=== PATIENT | male | born 1955 | race Caucasian/White ===

== ENCOUNTER 2019-07-31 11:06 | Emergency (ER) | payer MEDICAID ==
[~2019-07-31] VITALS: Ht 180.3 cm; Wt 88.5 kg
--- NOTE | 2019-07-31 11:10 | NUR ---
[facility] FOR [facility]LE CELLULITIS. SKIN IS INTACT, WARM TO TOUCH. DENIES SOB, PAIN, DIFFICULTY AMBULATING. NO ACUTE DISTRESS NOTED. MADE COMFORTABLE AND READY FOR EVAL.
--- NOTE | 2019-07-31 11:30 | NUR ---
CALLED DR. GRAFF OFFICE. LEFT NUMBER. WILL CALL BACK.
--- NOTE | 2019-07-31 11:35 | NUR ---
Bertin landon in [facility] - 07/31/19 at 1220 by KURT Patient discharged to home in stable condition. Written and verbal after care instructions given. Patient verbalizes understanding of instruction.
--- NOTE | 2019-07-31 11:42 | NUR ---
CALLED [facility] FOR TRANSPORT TO [facility], ETA 1230.
--- NOTE | 2019-07-31 11:45 | NUR ---
CALLED FACILITY, SPOKE WITH DIOMEDES. SHE IS GOING TO GET AUTHORIZATION FOR PT TO GO BACK TO FACILITY.
--- NOTE | 2019-07-31 12:00 | NUR ---
Patient discharged to home in stable condition. Written and verbal after care instructions given. Patient verbalizes understanding of instruction.
[2019-07-31 12:20] VITALS: BP 138/99
== END 2019-07-31 12:00 ==
LOC: ER 11:11
DX: L03.116 Cellulitis of left lower limb (principal); I10 Essential (primary) hypertension; G62.9 Polyneuropathy, unspecified; G89.29 Other chronic pain

== ENCOUNTER 2024-01-07 23:55 | Inpatient (IN) | payer MEDICARE, OTHER ==
[~2024-01-07] VITALS: Ht 177.8 cm; Wt 77.1 kg
[2024-01-08 00:31] LABS: BASOPHILS % (AUTO) 0.5 % (0.0-2.0); EOSINOPHILS # (AUTO) 0.3 K/uL (0.0-0.7); EOSINOPHILS % (AUTO) 4.8 % (0.0-6.0); HEMATOCRIT 32 % (39-51); HEMOGLOBIN 10.7 g/dL (13.5-17.5); LYMPHOCYTES # (AUTO) 1.9 K/uL (0.8-4.8); MEAN CORPUSCULAR HEMOGLOBIN 32 PG (26.0-33.0); MEAN CORPUSCULAR HGB CONC 34 g/dl (31.0-36.0); MEAN CORPUSCULAR VOLUME 94 fL (80-96); MONOCYTES # (AUTO) 0.7 K/uL (0.1-1.30); MONOCYTES % (AUTO) 10.2 % (2.0-12.0); NEUTROPHILS # (AUTO) 4.2 K/uL (1.8-8.9); NEUTROPHILS % (AUTO) 58.5 % (43.0-81.0); PLATELET COUNT (AUTO) 208 K/uL (150-450); RED BLOOD CELL COUNT(AUTO) 3.39 MIL/uL (4.5-6.0); WHITE BLOOD COUNT (AUTO) 7.2 K/uL (4.3-11.0)
[2024-01-08 00:39] LABS: CALCIUM, SERUM 8.5 mg/dL (8.5-10.1); CARBON DIOXIDE 31 mmol/L (21-32); CHLORIDE 105 mmol/L (98-107); CREATININE 0.8 mg/dL (0.6-1.3); GLUCOSE 94 mg/dL (74-106); POTASSIUM 3.9 mmol/L (3.5-5.1); SODIUM SERUM 141 mmol/L (136-145); UREA NITROGEN, BLOOD 13 mg/dL (7-18)
[2024-01-08 00:44] LABS: ALANINE AMINOTRANSFERASE 23 U/L (12-78); ALBUMIN 2.7 g/dL (3.4-5.0); ALCOHOL, BLOOD < 3 mg/dL (0-10); ALKALINE PHOSPHATASE 138 U/L (46-116); ASPARTATE AMINOTRANSFERASE 15 U/L (15-37); BILIRUBIN,DIRECT 0.1 mg/dL (0.0-0.2); BILIRUBIN,TOTAL 0.4 mg/dL (0.2-1.0); TOTAL PROTEIN, SERUM 8.4 g/dL (6.4-8.2)
[2024-01-08 00:51] LABS: ACETAMINOPHEN <10 ug/ml (10-30); SALICYLATE 2.4 mg/dL (2.8-20.0)
[2024-01-08 00:54] LABS: APPEARANCE,URINE CLEAR (CLEAR); BILIRUBIN,URINE NEGATIVE (NEGATIVE); BLOOD, URINE TRACE-INTA Ery/uL (NEGATIVE); COLOR,URINE YELLOW (YELLOW); KETONES,URINE NEGATIVE (NEGATIVE); LEUKOCYTE ESTERASE ,URINE NEGATIVE (NEGATIVE); NITRITE, URINE NEGATIVE (NEGATIVE); PROTEIN,URINE NEGATIVE (NEGATIVE); UGLUCOSE NEGATIVE (NEGATIVE)
[2024-01-08 00:55] LABS: ADD URINE CULTURE NO; BACTERIA,URINE Rare /HPF (None Seen); SQUAMOUS EPITHELIAL CELL,UR Few /HPF (None Seen); WBC,URINE 0-2 /HPF (0-3)
[2024-01-08 01:06] LABS: AMPHETAMINE, URINE NEGATIVE (NEGATIVE); BARBITURATE, URINE NEGATIVE (NEGATIVE); BENZODIAZEPINE, URINE NEGATIVE (NEGATIVE); CANNABINOID, URINE NEGATIVE (NEGATIVE); COCCAINE, URINE NEGATIVE (NEGATIVE); OPIATE, URINE NEGATIVE (NEGATIVE); PHENCYCLIDINE SCREEN,URINE NEGATIVE (NEGATIVE)
[2024-01-08] MEDS ORDERED: METH10TA2 PO (02:46)
[2024-01-08] MEDS ORDERED: LISI2.5T2 PO (02:46)
[2024-01-08] MEDS ORDERED: FLUO20CA36 PO (02:46)
[2024-01-08] MEDS ORDERED: CLON0.5T4 PO (02:46)
[2024-01-08] MEDS ORDERED: ARIP2TAB3 PO (02:46)
[2024-01-08] MEDS ORDERED: APIX5TAB4 PO (02:46)
[2024-01-08] MEDS ORDERED: TEMAZEPAM 7.5 MG CAPSULE PO PRN (04:30)
[2024-01-08] MEDS ORDERED: ACETAMINOPHEN 325 MG TABLET PO PRN (04:30)
[2024-01-08] MEDS ORDERED: MAG HYDROX/AL HYDROX/SIMETH 30 ML UDC PO PRN (04:30)
[2024-01-08] MEDS: BLOOD SUGAR DIAGNOSTIC 1 EACH STRIP IN ONE (06:37)
[2024-01-08 08:00] VITALS: BP 109/65; TEMP 98; O2SAT 99
[2024-01-08] MEDS ORDERED: FERR325T23 PO (08:00)
[2024-01-08] MEDS ORDERED: FOLI1TAB24 PO (08:00)
[2024-01-08] MEDS ORDERED: APIX5TAB PO (08:00)
[2024-01-08] MEDS ORDERED: LACT10PA3 PO (08:00)
[2024-01-08] MEDS ORDERED: CHOL200026 PO (08:00)
[2024-01-08] MEDS: LORAZEPAM 0.5 MG TABLET PO PRN (13:56)
[2024-01-08] MEDS: DIVALPROEX SODIUM 250 MG TABLET.DR PO SCH (14:00)
[2024-01-08 16:00] VITALS: BP 104/68; TEMP 98.6; O2SAT 94
[2024-01-08] MEDS ORDERED: LACTULOSE 10 G/15 ML UDC (PYXIS) PO PRN (17:30)
[2024-01-08] MEDS: METHADONE HCL 10 MG TABLET PO SCH (17:47)
[2024-01-08] MEDS: APIXABAN 5 MG TABLET PO SCH (17:48)
[2024-01-08 20:41] VITALS: BP 148/47; TEMP 98.3; O2SAT 97
[2024-01-08] MEDS: ARIPIPRAZOLE 2 MG TABLET PO SCH (21:31)
[2024-01-09 08:00] VITALS: BP 114/65; TEMP 98; O2SAT 98
[2024-01-09] MEDS: FERROUS SULFATE (325 MG) 325 MG/TAB TABLET PO SCH (08:33)
[2024-01-09] MEDS: FOLIC ACID 1 MG TABLET PO SCH (08:35)
[2024-01-09] MEDS: LISINOPRIL (5MG) 5 MG TABLET PO SCH (08:38)
[2024-01-09] MEDS: CHOLECALCIFEROL 1,000 UNIT TABLET (VIT D3) PO SCH (08:43)
[2024-01-09] MEDS: MULTIPLE VIT (LYCOPENE/FA/MV,CA,IRON,MIN/LUT)1 TAB PO SCH (08:45)
[2024-01-09 16:00] VITALS: BP 124/85; TEMP 97.9; O2SAT 97
[2024-01-09] MEDS ORDERED: risperiDONE 1 MG TABLET PO SCH (20:00)
[2024-01-09 20:32] VITALS: BP 108/61; TEMP 97.9; O2SAT 100
[2024-01-09] MEDS: risperiDONE 1 MG TABLET PO SCH (22:00)
[2024-01-10 07:40] LABS: CREATININE 0.7 mg/dL (0.6-1.3)
[2024-01-10 07:44] LABS: BASOPHILS % (AUTO) 0.2 % (0.0-2.0); EOSINOPHILS # (AUTO) 0.4 K/uL (0.0-0.7); EOSINOPHILS % (AUTO) 5.5 % (0.0-6.0); HEMATOCRIT 29 % (39-51); HEMOGLOBIN 9.7 g/dL (13.5-17.5); LYMPHOCYTES # (AUTO) 2.1 K/uL (0.8-4.8); LYMPHOCYTES % (AUTO) 30.8 % (20.0-44.0); MEAN CORPUSCULAR HEMOGLOBIN 31 PG (26.0-33.0); MEAN CORPUSCULAR HGB CONC 34 g/dl (31.0-36.0); MEAN CORPUSCULAR VOLUME 92 fL (80-96); MONOCYTES # (AUTO) 0.7 K/uL (0.1-1.30); NEUTROPHILS # (AUTO) 3.6 K/uL (1.8-8.9); NEUTROPHILS % (AUTO) 52.5 % (43.0-81.0); PLATELET COUNT (AUTO) 194 K/uL (150-450); RED CELL DISTRIBUTION WIDTH 14.8 % (11.5-15.0); WHITE BLOOD COUNT (AUTO) 6.8 K/uL (4.3-11.0)
[2024-01-10 07:55] LABS: ALBUMIN 2.1 g/dL (3.4-5.0); BILIRUBIN,TOTAL 0.2 mg/dL (0.2-1.0); CALCIUM, SERUM 8.2 mg/dL (8.5-10.1); CREATININE 0.7 mg/dL (0.6-1.3); POTASSIUM 3.9 mmol/L (3.5-5.1)
[2024-01-10 08:00] VITALS: BP 127/75; TEMP 97.7; O2SAT 98
[2024-01-10 08:04] LABS: CHOLESTEROL 130 mg/dL (<200); HDL CHOLESTEROL 50 mg/dL (40-60); LDL 65 mg/dL (0-99); TRIGLYCERIDES 42 mg/dL (30-150)
[2024-01-10 16:00] VITALS: BP 116/73; TEMP 97.9; O2SAT 100
[2024-01-10 21:32] VITALS: BP 117/67; TEMP 98.4; O2SAT 96
[2024-01-10] MEDS: CEPHALEXIN MONOHYDRATE 500 MG CAPSULE PO SCH (21:33)
[2024-01-11 08:00] VITALS: BP 130/82; TEMP 98.1; O2SAT 99
[2024-01-11] MEDS: THERAHONEY GEL 1.5 OZ TUBE TP SCH (09:00)
[2024-01-11] MEDS: risperiDONE 1 MG TABLET PO SCH (12:17)
[2024-01-11 16:00] VITALS: BP 118/80; TEMP 98.6; O2SAT 98
[2024-01-11 20:50] VITALS: BP 138/85; TEMP 97.9; O2SAT 99
[2024-01-12 08:00] VITALS: BP 137/87; TEMP 98.6; O2SAT 97
[2024-01-12 16:00] VITALS: BP 126/82; TEMP 98.1; O2SAT 98
[2024-01-12 20:00] VITALS: BP 143/85; TEMP 98.3; O2SAT 99
[2024-01-13 08:00] VITALS: BP 133/84; TEMP 98; O2SAT 98
[2024-01-13 16:00] VITALS: BP 133/81; TEMP 97.6; O2SAT 98
[2024-01-13 20:00] VITALS: BP 133/85; TEMP 97.9; O2SAT 97
[2024-01-14 08:00] VITALS: BP 130/95; TEMP 98; O2SAT 95
[2024-01-14] MEDS: risperiDONE 1 MG TABLET PO SCH ×2 (09:54→21:47)
[2024-01-14 16:00] VITALS: BP 138/83; TEMP 97.7; O2SAT 98
[2024-01-14 20:00] VITALS: BP 113/73; TEMP 97.6; O2SAT 96
[2024-01-14] MEDS: DIVALPROEX SODIUM 500 MG TABLET.DR PO SCH (21:47)
[2024-01-15 07:57] LABS: BASOPHILS % (AUTO) 0.2 % (0.0-2.0); EOSINOPHILS # (AUTO) 0.3 K/uL (0.0-0.7); EOSINOPHILS % (AUTO) 3.3 % (0.0-6.0); HEMATOCRIT 37 % (39-51); HEMOGLOBIN 12.2 g/dL (13.5-17.5); LYMPHOCYTES # (AUTO) 2.5 K/uL (0.8-4.8); LYMPHOCYTES % (AUTO) 30.4 % (20.0-44.0); MEAN CORPUSCULAR HEMOGLOBIN 30 PG (26.0-33.0); MEAN CORPUSCULAR HGB CONC 33 g/dl (31.0-36.0); MEAN CORPUSCULAR VOLUME 93 fL (80-96); MONOCYTES # (AUTO) 0.8 K/uL (0.1-1.30); MONOCYTES % (AUTO) 9.4 % (2.0-12.0); NEUTROPHILS # (AUTO) 4.7 K/uL (1.8-8.9); NEUTROPHILS % (AUTO) 56.7 % (43.0-81.0); PLATELET COUNT (AUTO) 301 K/uL (150-450); RED BLOOD CELL COUNT(AUTO) 4.02 MIL/uL (4.5-6.0); RED CELL DISTRIBUTION WIDTH 15.1 % (11.5-15.0); WHITE BLOOD COUNT (AUTO) 8.3 K/uL (4.3-11.0)
[2024-01-15 08:00] VITALS: BP 130/89; TEMP 97.7; O2SAT 98
[2024-01-15] MEDS: risperiDONE 1 MG TABLET PO SCH (09:09)
[2024-01-15 09:14] LABS: ALBUMIN 2.5 g/dL (3.4-5.0); BILIRUBIN,TOTAL 0.4 mg/dL (0.2-1.0); CREATININE 0.7 mg/dL (0.6-1.3); TOTAL PROTEIN, SERUM 8.2 g/dL (6.4-8.2)
[2024-01-15 16:00] VITALS: BP 98/68; TEMP 97.9; O2SAT 97
[2024-01-15 20:30] VITALS: BP 113/74; TEMP 97.9; O2SAT 96
[2024-01-16 08:00] VITALS: BP 119/82; TEMP 98; O2SAT 98
[2024-01-16 16:07] VITALS: BP 94/67; TEMP 98.3; O2SAT 97
[2024-01-16 21:00] VITALS: BP 117/80; TEMP 98.2; O2SAT 96
[2024-01-17 08:00] VITALS: BP 122/76; TEMP 97.9; O2SAT 96
[2024-01-17 16:00] VITALS: BP 101/65; TEMP 97.9; O2SAT 100
[2024-01-17 20:30] VITALS: BP 130/72; TEMP 98.1; O2SAT 98
[2024-01-18 08:00] VITALS: BP 108/67; TEMP 98; O2SAT 100
[2024-01-18] MEDS: MAGNESIUM HYDROXIDE 30 ML UDC PO PRN (09:09)
[2024-01-18 09:11] VITALS: BP 108/67
== END 2024-01-18 13:36 | DRG 876 ==
LOC: ER 01-08 00:23 → GPS 01-08 02:35
PROVIDERS: ADMIT Nurse Practitioner Psychiatric/Mental Health
PROC: 0JBP0ZZ Excision of Left Lower Leg Subcutaneous Tissue and Fascia, Open Approach (ICD-10-PCS; principal; 2024-01-12)
PROC: 0JBN0ZZ Excision of Right Lower Leg Subcutaneous Tissue and Fascia, Open Approach (ICD-10-PCS; 2024-01-12)
DX: F25.9 Schizoaffective disorder, unspecified (principal); L03.116 Cellulitis of left lower limb; L03.115 Cellulitis of right lower limb; E44.0 Moderate protein-calorie malnutrition; L97.919 Non-pressure chronic ulcer of unspecified part of right lower leg with unspecified severity; L97.929 Non-pressure chronic ulcer of unspecified part of left lower leg with unspecified severity; F29 Unspecified psychosis not due to a substance or known physiological condition; I10 Essential (primary) hypertension; R41.9 Unspecified symptoms and signs involving cognitive functions and awareness; Z87.2 Personal history of diseases of the skin and subcutaneous tissue; G62.9 Polyneuropathy, unspecified; Z85.828 Personal history of other malignant neoplasm of skin; S01.01XA Laceration without foreign body of scalp, initial encounter; X58.XXXA Exposure to other specified factors, initial encounter; Y92.9 Unspecified place or not applicable; Z53.20 Procedure and treatment not carried out because of patient's decision for unspecified reasons; Z87.81 Personal history of (healed) traumatic fracture; D64.9 Anemia, unspecified; E88.09 Other disorders of plasma-protein metabolism, not elsewhere classified; G89.21 Chronic pain due to trauma; I73.9 Peripheral vascular disease, unspecified; V89.2XXS Person injured in unspecified motor-vehicle accident, traffic, sequela; Z79.01 Long term (current) use of anticoagulants; Z86.718 Personal history of other venous thrombosis and embolism; Z91.199 Patient's noncompliance with other medical treatment and regimen due to unspecified reason
CPT/HCPCS: 36415; 80048-TC; 80053-TC; 80061-TC; 80076-TC; 80164-TC; 81001; 82565-TC; 82962-TC; 85025-TC; 87081-TC; 97112-TC; 97116-TC; 97530-TC; A6253; A6403; G0480

== ENCOUNTER 2024-08-11 15:18 | Emergency (ER) | payer BC, MEDICAID ==
[~2024-08-11] VITALS: Ht 167.6 cm; Wt 87.1 kg
[~2024-08-11 15:18] MED LIST: APIX5TAB PO; ARIP2TAB3 PO; CHOL200026 PO; CLON0.5T4 PO; FERR325T23 PO; FLUO20CA36 PO; FOLI1TAB24 PO; LACT10PA3 PO; LISI2.5T2 PO; METH10TA2 PO
[2024-08-11] MEDS: IV NS 0.9% 1,000 ML BAG IV ONE (15:30)
[2024-08-11 16:36] LABS: BASOPHILS # (AUTO) 0.1 K/uL (0.0-0.2); BASOPHILS % (AUTO) 0.9 % (0.0-2.0); EOSINOPHILS # (AUTO) 0.4 K/uL (0.0-0.7); EOSINOPHILS % (AUTO) 6.1 % (0.0-6.0); HEMATOCRIT 37 % (39-51); HEMOGLOBIN 12.9 g/dL (13.5-17.5); LYMPHOCYTES # (AUTO) 1.6 K/uL (0.8-4.8); LYMPHOCYTES % (AUTO) 23.2 % (20.0-44.0); MEAN CORPUSCULAR HEMOGLOBIN 32 PG (26.0-33.0); MEAN CORPUSCULAR HGB CONC 35 g/dl (31.0-36.0); MEAN CORPUSCULAR VOLUME 93 fL (80-96); MONOCYTES # (AUTO) 0.8 K/uL (0.1-1.30); MONOCYTES % (AUTO) 11.4 % (2.0-12.0); NEUTROPHILS % (AUTO) 58.4 % (43.0-81.0); PLATELET COUNT (AUTO) 220 K/uL (150-450); RED BLOOD CELL COUNT(AUTO) 3.97 MIL/uL (4.5-6.0); RED CELL DISTRIBUTION WIDTH 15.3 % (11.5-15.0); WHITE BLOOD COUNT (AUTO) 6.9 K/uL (4.3-11.0)
[2024-08-11 16:45] LABS: CALCIUM, SERUM 9.2 mg/dL (8.5-10.1); CREATININE 0.9 mg/dL (0.6-1.3); POTASSIUM 3.5 mmol/L (3.5-5.1)
[2024-08-11] MEDS ORDERED: IOHEXOL-300 100 ML VIAL IV ONE (16:55)
[2024-08-11] MEDS ORDERED: IV NS 0.9% 250 ML IV ONE (16:55)
[2024-08-12 10:26] VITALS: BP 124/72; TEMP 98; O2SAT 99
== END 2024-08-12 10:27 | disposition home or self-care (01) ==
LOC: ER 16:01
DX: S40.012A Contusion of left shoulder, initial encounter (principal); I10 Essential (primary) hypertension; R51.9 Headache, unspecified; I73.9 Peripheral vascular disease, unspecified; Z79.899 Other long term (current) drug therapy; Z85.828 Personal history of other malignant neoplasm of skin; W18.30XA Fall on same level, unspecified, initial encounter; Y93.89 Activity, other specified; Y92.480 Sidewalk as the place of occurrence of the external cause; Y99.8 Other external cause status
CPT/HCPCS: 99285; 71260; 96360; 73503; 73030; 70450; 74177; 85025; 80048; 36415; J7030; J7050; Q9967; 73502